=== PATIENT | male | born 1960 | race Caucasian/White ===

== ENCOUNTER 2018-08-11 17:24 | Emergency (ER) | payer OTHER ==
--- NOTE | 2018-08-11 18:09 | EDM.PDOC ---
ED HPI GENERAL MEDICAL PROBLEM - General Chief Complaint: Lower Extremity Injury/Pain Stated Complaint: RIGHT ankle pain Time Seen by Provider: 08/11/18 18:00 Source of Information: Reports: Patient History Limitations: Reports: No Limitations - History of Present Illness INITIAL COMMENTS - FREE TEXT/NARRATIVE: Venkata is a 58 year old male who presents to the ED with c/o right ankle pain. He reports he was playing basketball just prior to presentation and rolled his ankle. Reports he heard a "crack" when it happened and instantly had swelling. Presented immediately to ED. Was able to ambulate in to ED. Onset: Today, Sudden Onset Date: 08/11/18 Onset Time: 16:45 Duration: Constant Location: Reports: Lower Extremity, Right Quality: Reports: Ache Severity: Moderate Associated Symptoms: Reports: No Other Symptoms RIGHT ANKLE Pain Score (Numeric/FACES): 5 - Related Data Allergies Allergy/AdvReac Type Severity Reaction Status Date / Time No Known Allergies Allergy Verified 08/11/18 17:41 Home Meds: Home Meds metFORMIN HCl [Metformin HCl ER] 500 mg PO DAILY 08/11/18 [History] Past Medical History - Past Health History Medical/Surgical History: Denies Medical/Surgical History Endocrine/Metabolic History: Reports: Diabetes, Type II Social & Family History - Tobacco Use Smoking Status *Q: Never Smoker Second Hand Smoke Exposure: No Review of Systems - Review of Systems Review Of Systems: ROS reveals no pertinent complaints other than HPI. ED EXAM, GENERAL - Physical Exam Exam: See Below Exam Limited By: No Limitations General Appearance: Alert, WD/WN, No Apparent Distress Peripheral Pulses: 2+: Posterior Tibial (R), Dorsalis Pedis (R) Extremities: Normal Range of Motion, Normal Capillary Refill, Joint Swelling ( lateral right ankle), Other (tenderness to lateral aspect of right ankle) Psychiatric: Normal Affect, Normal Mood Course - Vital Signs Last Recorded V/S: Last Vital Signs Temp 98.1 F 08/11/18 17:33 Pulse 111 H 08/11/18 17:33 Resp 20 08/11/18 17:33 BP 143/86 H 08/11/18 17:33 Pulse Ox 97 08/11/18 17:33 - Orders/Labs/Meds Orders: Active Orders 24 hr Category Date Time Status Ankle Min 3V Rt [CR] Stat Exams 08/11/18 17:44 Taken - Re-Assessments/Exams Free Text/Narrative Re-Assessment/Exam: Xray negative per my review. Discussed with patient. Departure - Departure Time of Disposition: 18:06 Disposition: Home, Self-Care 01 Condition: Fair Clinical Impression: Right ankle sprain Qualifiers: Encounter type: initial encounter - Discharge Information *PRESCRIPTION DRUG MONITORING PROGRAM REVIEWED*: Not Applicable *COPY OF PRESCRIPTION DRUG MONITORING REPORT IN PATIENT MELY: Not Applicable Instructions: Ankle Sprain, [id number] Referrals: Nathaly Cade PA [Primary Care Provider] - Forms: ED Department Discharge Additional Instructions: Ibuprofen 800 mg 3x/day as needed. Recommend taking at least twice daily the next 5 days to help with swelling. Ice ankle at least 2x/day for 20 minutes at a time until swelling resolves Weight bearing as tolerated Air splint on while ambulatory Elevate ankle as much as possible until swelling resolves Follow up if symptoms worsen or do not improve over next 7-10 days - My Orders Last 24 Hours: My Active Orders 08/11/18 17:44 Ankle Min 3V Rt [CR] Stat - Assessment/Plan Last 24 Hours: My Active Orders 08/11/18 17:44 Ankle Min 3V Rt [CR] Stat
== END 2018-08-11 18:15 | disposition home or self-care (01) ==
LOC: CC.ED 17:24
DX: S93.401A Sprain of unspecified ligament of right ankle, initial encounter (principal); E11.9 Type 2 diabetes mellitus without complications; Z79.84 Long term (current) use of oral hypoglycemic drugs; X50.1XXA Overexertion from prolonged static or awkward postures, initial encounter; Y93.67 Activity, basketball
CPT/HCPCS: 73610-RT; 99283-25